=== PATIENT | male | born 1995 | race African-American/Black ===

== ENCOUNTER 2018-10-11 10:59 | Emergency (ER) | payer MEDICAID ==
[~2018-10-11] VITALS: Ht 175.3 cm; Wt 82.0 kg
[2018-10-11 11:09] VITALS: BP 122/63
== END 2018-10-11 15:19 | disposition home or self-care (01) ==
LOC: ER 13:15
DX: S30.812A Abrasion of penis, initial encounter (principal); X58.XXXA Exposure to other specified factors, initial encounter; Y93.89 Activity, other specified; Y92.89 Other specified places as the place of occurrence of the external cause; Y99.8 Other external cause status; Z88.0 Allergy status to penicillin
CPT/HCPCS: 99283